=== PATIENT | female | born 1990 | race African-American/Black ===

== ENCOUNTER 2016-08-18 18:42 | Emergency (ER) | payer OTHER ==
[~2016-08-18 18:42] MED LIST: CEFTIN500 MG PO; EFFEXOR XR 75 M75 MG PO; LYRICA100 MG PO; LYRICA150 MG PO; NOVOLOG SC; TYLENOL 325MG325 MG PO
[2016-08-18 21:24] LABS: HEMOGLOBIN 14.2 gm/dl (12.3-15.3); RED BLOOD COUNT 4.68 M/UL (4.00-5.10); WHITE BLOOD COUNT 8.3 K/UL (4.5-11.0)
[2016-08-18 21:45] LABS: BUN/CREATININE RATIO 15 (0-10)
== END 2016-08-18 22:25 | disposition home or self-care (01) ==
LOC: ER1 18:42
PROVIDERS: Physician Assistant Medical
DX: R10.9 Unspecified abdominal pain (principal); E10.9 Type 1 diabetes mellitus without complications; Z32.00 Encounter for pregnancy test, result unknown; Z79.4 Long term (current) use of insulin
CPT/HCPCS: 36415; 80053; 81001; 82150; 83690; 84702; 84703; 85025; 99284